=== PATIENT | female | born 1985 | race Caucasian/White ===

== ENCOUNTER 2021-08-15 18:52 | Emergency (ER) | payer MEDICAID, OTHER ==
[~2021-08-15] VITALS: Ht 152.4 cm; Wt 74.8 kg
[2021-08-15 18:57] VITALS: BP 116/84
== END 2021-08-15 21:22 | disposition left against medical advice (07) ==
LOC: ER 18:54
DX: T25.022A Burn of unspecified degree of left foot, initial encounter (principal); Z53.21 Procedure and treatment not carried out due to patient leaving prior to being seen by health care provider; X15.0XXA Contact with hot stove (kitchen), initial encounter; Y93.89 Activity, other specified; Y92.89 Other specified places as the place of occurrence of the external cause; Y99.8 Other external cause status

== ENCOUNTER 2022-12-10 00:42 | Inpatient (IN) | payer MEDICAID ==
[~2022-12-10] VITALS: Ht 167.6 cm; Wt 70.5 kg
[2022-12-10] MEDS ORDERED: HYDROcodone-ACET 5/325MG TAB PO ONE (01:15)
[2022-12-10] MEDS ORDERED: VANCOMYCIN PER PHARMACY 1,000 MG IV SCH (01:30)
[2022-12-10] MEDS ORDERED: SODIUM CHLORIDE 0.9% 1,000 ML IV ONE ×2 (01:30→10:45)
[2022-12-10 02:03] LABS: Basophils # (auto) 0.1 10 ^3/uL (0-0.2); Basophils % (auto) 0.5 % (0.0-2.0); Eosinophils # (auto) 0 10 ^3/uL (0-0.8); Hematocrit 36.5 % (36.0-46.0); Lymphocytes # (auto) 0.9 10 ^3/uL (0.4-5.4); Lymphocytes % (auto) 6.5 % (10.0-50.0); Mean Corpuscular Hemoglobin 30.5 pg (28.0-32.0); Mean Corpuscular Hgb Conc. 32.8 g/dL (32.0-36.0); Mean Corpuscular Volume 92.8 fL (80.0-100.0); Monocytes # (auto) 0.4 10 ^3/uL (0-1.3); Monocytes % (auto) 2.9 % (0.0-12.0); Neutrophils # (auto) 12.7 10 ^3/uL (1.6-8.6); Neutrophils % (auto) 90.1 % (37.0-80.0); Nucleated Red Blood Cells % 0.1 %; Red Blood Cells 3.93 10^6/uL (4.0-5.20)
[2022-12-10] MEDS ORDERED: VANCOMYCIN 1GM/250ML 250 ML IV ONE (02:15)
[2022-12-10 02:22] LABS: BUN/Creatinine Ratio 4.4 (10.0-20.0); Calcium 8.4 mg/dL (8.5-10.1); Potassium 3.7 mmol/L (3.5-5.1)
[2022-12-10 02:25] LABS: Lactic Acid w/Reflex 2.1 mmol/L (0.4-2.0)
[2022-12-10 02:44] LABS: Albumin 3.2 g/dL (3.4-5.0); Bilirubin, Total 0.4 mg/dL (0.2-1.0); Total Protein 6.6 g/dL (6.4-8.2)
[2022-12-10] MEDS ORDERED: MORPHINE SULFATE INJ 2 MG/ml SYRG IV ONE (05:45)
[2022-12-10] MEDS ORDERED: PIPERACILLIN-TAZO 4.5GM 100 ML IV SCH ×2 (06:00)
[2022-12-10] MEDS ORDERED: ACETAMINOPHEN 325 MG TAB PO ONE (09:30)
[2022-12-10] MEDS ORDERED: ACETAMINOPHEN 325 MG TAB PO PRN (10:45)
[2022-12-10] MEDS ORDERED: VANCOMYCIN PER PHARMACY 0 MG IV SCH (10:45)
[2022-12-10] MEDS ORDERED: NITROGLYCERIN 0.4 MG SL TAB SL PRN (10:45)
[2022-12-10] MEDS ORDERED: MORPHINE SULFATE INJ 2 MG/ml SYRG IV PRN (10:45)
[2022-12-10] MEDS: MORPHINE SULFATE INJ 2 MG/ml SYRG IV PRN ×2 (11:11→22:31)
[2022-12-10] MEDS: ONDANSETRON HCL 4 MG/2 ML VIAL IV PRN ×2 (11:12→22:31)
[2022-12-10] MEDS: SODIUM CHLORIDE 0.9% 1,000 ML IV SCH ×2 (11:15→17:25)
[2022-12-10 11:23] LABS: Cholesterol 159 mg/dL (< 200); HDL Cholesterol 49 mg/dL (40-59); LDL Cholesterol 99 mg/dL (< 100); Triglycerides 80 mg/dL (< 150)
[2022-12-10 11:38] LABS: Urine Bacteria NONE SEEN /hpf (None Seen); Urine Blood Negative /uL (Negative); Urine Specific Gravity 1.002 (1.001-1.035); Urine WBC 1 /hpf (0 - 5)
[2022-12-10] MEDS: VANCOMYCIN 1GM/250ML 250 ML IV SCH ×2 (11:59→21:02)
[2022-12-10] MEDS: PIPERACILLIN-TAZOB 3.375GM 100 ML IV SCH ×2 (11:59→18:10)
[2022-12-10 12:14] LABS: Alcohol, Urine < 3.0 mg/dL (0-10); Opiate Scree,Urine NEGATIVE (NEGATIVE)
[2022-12-10 12:15] LABS: Amphetamine Screen, Urine NEGATIVE (NEGATIVE); Barbiturate Scree,Urine NEGATIVE (NEGATIVE); Benzodiazephine Screen, Urine NEGATIVE (NEGATIVE); Cannabinoid Screen, Urine POSITIVE (NEGATIVE); Cocaine Screen, Urine NEGATIVE (NEGATIVE); Phencyclidine Screen, Urine NEGATIVE (NEGATIVE)
[2022-12-10] MEDS: HYDROcodone-ACET 5/325MG TAB PO PRN ×2 (16:07→23:14)
[2022-12-10 20:00] VITALS: BP 106/65
[2022-12-11] MEDS: PIPERACILLIN-TAZOB 3.375GM 100 ML IV SCH ×5 (00:30→23:58)
[2022-12-11] MEDS: SODIUM CHLORIDE 0.9% 1,000 ML IV SCH ×4 (01:32→20:05)
[2022-12-11] MEDS: ONDANSETRON HCL 4 MG/2 ML VIAL IV PRN ×2 (03:22→20:54)
[2022-12-11] MEDS: MORPHINE SULFATE INJ 2 MG/ml SYRG IV PRN ×2 (03:23→09:07)
[2022-12-11] MEDS: VANCOMYCIN 1GM/250ML 250 ML IV SCH ×3 (04:50→20:28)
[2022-12-11 05:30] VITALS: BP_SYST 106; BP_DIAS 55; BP_DIAS 65
[2022-12-11 05:58] LABS: Basophils # (auto) 0 10 ^3/uL (0-0.2); Basophils % (auto) 0.4 % (0.0-2.0); Eosinophils # (auto) 0 10 ^3/uL (0-0.8); Eosinophils % (auto) 0.2 % (0.0-7.0); Hematocrit 35.9 % (36.0-46.0); Lymphocytes # (auto) 1.2 10 ^3/uL (0.4-5.4); Lymphocytes % (auto) 15.9 % (10.0-50.0); Mean Corpuscular Hemoglobin 30.6 pg (28.0-32.0); Mean Corpuscular Hgb Conc. 33.4 g/dL (32.0-36.0); Mean Corpuscular Volume 91.7 fL (80.0-100.0); Monocytes # (auto) 0.6 10 ^3/uL (0-1.3); Monocytes % (auto) 8.8 % (0.0-12.0); Neutrophils # (auto) 5.4 10 ^3/uL (1.6-8.6); Neutrophils % (auto) 74.7 % (37.0-80.0); Red Blood Cells 3.91 10^6/uL (4.0-5.20); Red Cell Distribution Width 14.3 % (11.8-14.3); White Blood Cell 7.3 10^3/uL (4.4-10.8)
[2022-12-11] MEDS ORDERED: PREG-109 PO (06:15)
[2022-12-11] MEDS ORDERED: GABA300C10 PO (06:15)
[2022-12-11] MEDS ORDERED: DULO60CA PO (06:15)
[2022-12-11 06:17] LABS: Potassium 3.2 mmol/L (3.5-5.1)
[2022-12-11] MEDS: HYDROcodone-ACET 5/325MG TAB PO PRN ×2 (06:23→21:19)
[2022-12-11 06:24] LABS: Albumin 2.6 g/dL (3.4-5.0); BUN/Creatinine Ratio 5.3 (10.0-20.0); Bilirubin, Total 0.4 mg/dL (0.2-1.0); Calcium 8.2 mg/dL (8.5-10.1); Total Protein 6.4 g/dL (6.4-8.2)
[2022-12-11 08:00] VITALS: BP 108/65
[2022-12-11 13:00] VITALS: BP 98/52
[2022-12-11 17:00] VITALS: BP 86/40
[2022-12-11 20:00] VITALS: BP 106/56
[2022-12-11 22:00] VITALS: BP 106/56
[2022-12-12] MEDS: ONDANSETRON HCL 4 MG/2 ML VIAL IV PRN ×2 (01:05→15:13)
[2022-12-12] MEDS: SODIUM CHLORIDE 0.9% 1,000 ML IV SCH ×4 (02:45→22:45)
[2022-12-12] MEDS: VANCOMYCIN 1GM/250ML 250 ML IV SCH ×3 (04:50→15:13)
[2022-12-12 05:00] VITALS: BP 105/44
[2022-12-12] MEDS: PIPERACILLIN-TAZOB 3.375GM 100 ML IV SCH ×2 (06:50→11:44)
[2022-12-12 08:30] VITALS: BP 112/61
[2022-12-12] MEDS: DAKINS QUARTER STR 0.125% (NaHypochlorite) 473 ML TOPICAL SOL TOP SCH (10:00)
[2022-12-12] MEDS ORDERED: LOPERAMIDE HCL 2 MG CAP/TAB PO ONE (11:00)
[2022-12-12] MEDS ORDERED: LOPERAMIDE HCL 2 MG CAP/TAB PO PRN (11:00)
[2022-12-12 12:30] VITALS: BP 109/58
[2022-12-12] MEDS: HYDROcodone-ACET 5/325MG TAB PO PRN ×2 (13:20→21:38)
[2022-12-12 16:59] VITALS: BP 122/59
[2022-12-12 20:00] VITALS: BP 109/66
[2022-12-12] MEDS: ceFAZolin 2 GM in D5W 5% 100 ML IV SCH (21:38)
[2022-12-12 22:00] VITALS: BP 109/66
[2022-12-13] MEDS: DAKINS QUARTER STR 0.125% (NaHypochlorite) 473 ML TOPICAL SOL TOP SCH ×2 (00:25→10:00)
[2022-12-13 05:00] VITALS: BP 112/59
[2022-12-13] MEDS: ceFAZolin 2 GM in D5W 5% 100 ML IV SCH ×2 (05:35→14:00)
[2022-12-13] MEDS: HYDROcodone-ACET 5/325MG TAB PO PRN (06:20)
[2022-12-13] MEDS: ONDANSETRON HCL 4 MG/2 ML VIAL IV PRN (07:00)
[2022-12-13] MEDS: SODIUM CHLORIDE 0.9% 1,000 ML IV SCH ×2 (07:02→12:05)
[2022-12-13 09:00] VITALS: BP 92/52
[2022-12-13] MEDS ORDERED: CEPH750C6 OR (10:34)
[2022-12-13 13:00] VITALS: BP 97/58
== END 2022-12-13 15:04 | disposition home or self-care (01) | DRG 720 ==
LOC: EDBD 00:42 → ER 00:42 → TELE 10:44 → TELE-WESTW 12-11 03:52 → WEST WING 12-12 14:46
PROVIDERS: ADMIT Registered Nurse; ATTEND Family Medicine
DX: A41.01 Sepsis due to Methicillin susceptible Staphylococcus aureus (principal); E46 Unspecified protein-calorie malnutrition; E66.9 Obesity, unspecified; F12.90 Cannabis use, unspecified, uncomplicated; Z20.822 Contact with and (suspected) exposure to COVID-19; T25.022A Burn of unspecified degree of left foot, initial encounter; X08.8XXA Exposure to other specified smoke, fire and flames, initial encounter; L03.116 Cellulitis of left lower limb; R19.7 Diarrhea, unspecified; Z68.28 Body mass index [BMI] 28.0-28.9, adult; Z82.49 Family history of ischemic heart disease and other diseases of the circulatory system; Z83.3 Family history of diabetes mellitus; Z93.3 Colostomy status; Z71.3 Dietary counseling and surveillance; Y93.89 Activity, other specified; Y92.89 Other specified places as the place of occurrence of the external cause; Y99.8 Other external cause status
CPT/HCPCS: 36415; 73590; 80053; 80061; 80202; 80307; 81001; 83036; 83605; 84443; 84484; 85025; 87040; 87045; 87077; 87186; 87205; 87426; 87427; 87493; 93971; 96365; 96366; 96367; 96375; 99291; G0378; J2405; J2543

== ENCOUNTER 2023-12-19 14:48 | Emergency (ER) | payer MEDICAID ==
[~2023-12-19 14:48] MED LIST: CEPH750C6 OR; DULO60CA41 PO; GABA-1250 PO; PREG75CA90 PO
== END 2023-12-19 15:06 | disposition left against medical advice (07) ==
LOC: ER 14:48
DX: Z04.3 Encounter for examination and observation following other accident (principal); Z53.21 Procedure and treatment not carried out due to patient leaving prior to being seen by health care provider; W19.XXXA Unspecified fall, initial encounter; Y93.89 Activity, other specified; Y92.89 Other specified places as the place of occurrence of the external cause; Y99.8 Other external cause status